=== PATIENT | male | born 1990 | race Caucasian/White ===

== ENCOUNTER 2020-03-23 08:11 | Day surgery (SDC) | payer OTHER, SELFPAY ==
[2020-03-02 09:56] VITALS: BMI 26.9
--- NOTE | 2020-03-23 06:06 | HP_ITS ---
Intake Vital Signs 03/02/20 Height 5 ft 11 in 03/02/20 Weight: 193 lb 03/02/20 BMI 26.9 03/02/20 BP 128/79 H 03/02/20 Blood Pressure Location Rt brachial 03/02/20 Position Sitting 03/02/20 Respiration 18 Intake Visit Reasons: R Inguinal Hernia Chief Complaint: [facility] Learning Administrator Required: No Is patient in pain?: No Allergies No Known Allergies Allergy (Verified 03/02/20 09:57) PFSH Surgical History S/P wisdom tooth extraction (Acute) Social History (Updated 03/03/20 @ 09:[address] Mervin Rosenthal MD) Smoking Status: Never smoker alcohol intake: current alcohol intake frequency: a few times a month HPI HPI HPI: MIRIAM KUMARI, is a 29 M who presents to the office today for HPI HPI Surgical H&P: Yes HPI: MIRIAM KUMARI, is a 29 M who presents to the office today for right groin bulging. Patient reports that he has had right groin bulging for at least 1 to 2 months but does not know how long it has been there. He said he recently lost weight and noticed that the bulge in the groin did not go away. He does have pain with bending over. Patient does not have any nausea or vomiting or radiation of pain and he does not have any pain on the opposite side. ROS General General: No weight change or fatigue Cardio Cardiovascular: No murmur, pacemaker, heart disease, atrial fibrillation, high blood pressure, heart attack, heart stent, palpitations, shortness of breat with exertion or chest pain Psych Psychiatric: No depression or anxiety Resp Respiratory: No shortness of breath, No sleep apnea, No cough, No COPD, No asthma, No emphysema, No wheezing Gastro Gastrointestinal: No abdominal pain, No nausea or vomiting, No diarrhea, No constipation, No blood in stool, No acid reflux, No hemorrhoids, No ulcers, No gallbladder problem, No black,tarry stools Sacha Hematologic: No blood thinners Exam Const General: cooperative Orientation: alert, oriented x3 Resp Effort & Inspection: normal respiratory effort Auscultation: clear to auscultation bilaterally Cardio Rate: regular rate Rhythm: regular rhythm Heart Sounds: no murmurs GI Inspection: non-distended Palpation: soft, hernia indirect inguinal on the right, nontender Assessment & Plan Problems 1. Right inguinal hernia K40.90 Plan The patient has a reducible right inguinal hernia. I discussed open versus laparoscopic dual hernia repair with him. I discussed mesh placement. The patient elected for a robotic assisted laparoscopic right inguinal hernia repair with mesh, possible bilateral. I discussed if the patient had an identifiable hernia on the left side during surgery if he would want repaired and he said he would. I discussed surgery in detail with the patient. I discussed the risks including not limited to bleeding, infection, injury to other organ such as the bowel, bladder, ureters, spermatic cord and the possibility of chronic groin pain and recurrence of the hernia. The patient understands all the risks and is when to proceed. We discussed the current risks associated with COVID-19. While it is understood that there is a community spread of COVID-19, the risk of verena COVID-19 while at [facility] ([facility]) is very low; however, the risk cannot be completely mitigated because of the community spread of the disease. We discussed in detail the risk of exposure to and/or potential harm posed by the COVID-19 virus with having a surgery/procedure at this time versus the risk of delaying the surgery/procedure. It is not possible to know either the risk of delaying the surgery or procedure or chance of getting an infection with perfect accuracy, but a joint decision was made to proceed at this time with the scheduled surgery/procedure as indicated on the consent form. Patient was notified that we will need to comply with any screening or testing [facility] wishes to perform or that surgery may be delayed for any positive results. Mervin Rosenthal MD Pager: [facility] [address] [place] [address], [address] [place] [address] Office: Coding Level of Care Code Off vis,new,level 3 Diagnoses Right inguinal hernia K40.90 I have re-examined the patient. There are no clinical changes since date of exam.
[2020-03-23] MEDS: Lactated Ringers 1,000 ML 100 ML IV ×2 (09:55→13:23)
[2020-03-23 10:17] VITALS: BP 131/69; PULSE 67; RESP 16; TEMP 36.4; O2SAT 97; BMI 26.9
[2020-03-23] MEDS: Cefazolin 2 GM in 0.9% Normal Saline 100 ML IV (11:51)
[2020-03-23 13:08] VITALS: BP 129/93; BP 131/69; PULSE 59; RESP 16; TEMP 36.3; O2SAT 100
--- NOTE | 2020-03-23 13:14 | OP.PCM_ITS ---
Problem List (1) Right inguinal hernia Status: Acute Report of Operation Date of Procedure: 03/23/20 Pre-Operative Diagnosis: Right inguinal hernia Post-Operative Diagnosis: Same Surgery/Procedure Performed:: Laparoscopic robotic assisted right inguinal hernia repair with mesh Description of Procedure: Patient was brought back to the operating room and general anesthesia was induced. The abdomen was prepped and draped in usual sterile fashion. A midline incision was created superior to the umbilicus and deepened to the fascia which was elevated and incised. A finger sweep was performed and a balloon trocar was placed into the abdomen and the abdomen was insufflated to 15 mmHg. The abdomen was inspected the patient had a radial hernia only and the left side appeared normal. Next an incision was made in the right lower quadrant as well as the left lower quadrant and two 8 mm ports were placed under direct visualization. The patient was then placed in Trendelenburg position and the robot was docked. Cautery scissors were used to make an incision in the peritoneum on the right side. The dissection was carried inferiorly until the hernia sac was identified and reduced into the abdomen and the adhesions to it were lysed. Next a progrip mesh was placed into the right groin and unfolded over the hernia defect. The hernia sac was then reapproximated using a running 3 OV lock suture including the hernia sac in the suture line to prevent it from creating a peritoneal hernia. The peritoneum provided complete coverage of the hernia mesh. Next the robot was undocked and the air was allowed to desufflate from the abdomen. The fascia of the midline incision was closed with an 0 Vicryl [id number] suture. All incisions were injected with local anesthetic and closed with interrupted 4-0 Monocryl suture as well as Steri- Strips and bandages. Scrotum was checked at the end of the case and contain both testicles. Patient was taken to PACU in stable condition. - Admit VTE Documentation VTE Mechan Device Prophylaxis: SCD's
[2020-03-23 13:15] VITALS: BP 118/79; BP 131/69; PULSE 53; RESP 16; O2SAT 100
--- NOTE | 2020-03-23 13:18 | DCINST_ITS ---
Discharge Diet: Light diet - advance as tolerated Discharge Activity: Return to Normal Activity, May Not Drive - for 2-3 days or while taking narcotic pain meds., May Shower - with the bandage in place 1-2 days after surgery. Lifting Restrictions: 20 pounds for 4 weeks. Additional Activity Instructions:: Climbing stairs is fine, walking is encouraged. Sitting in bed may be uncomfortable. Sitting up using your lateral muscles (sitting up sideways) is usually more comfortable. Do not drive, work heavy equipment of sign legal documents for 24 hours. If your hernia repair was an ingunial repair, you may have scrotal swelling, an ice pack and/or athletic support can provide more comfort. Pain medications may cause nausea, you should typically eat light foods as you take your pain medications. Pain medications may also cause constipation. If you have difficulty with this, discuss with your doctor. Call your doctor if your incision/area has: Continuous Slow Oozing, Sudden Increased Bleeding, Increased Pain/ Swelling, Increased Redness, Foul Smelling Discharge Call your doctor if you observe: Fever of 101 or Higher Suture Line Care: Avoid Pulling/Pushing, Avoid Pinching/Bending Change Dressing in (Days):: 3 - Leave steri-strips for 1 week. May protect with a guaze bandaid. Cleanse incision/area with: Keep Dressing Clean & Dry Allergies/Adverse Reactions: Allergies No Known Allergies Allergy (Verified 03/23/20 09:59) Medications to take at Discharge Oxycodone HCl/Acetaminophen [Percocet 5-325 mg Tablet] 1 - 2 tab PO Q6H PRN PRN 5 Days #10 tablet 03/23/20 The following prescriptions were given: Oxycodone HCl/Acetaminophen [Percocet 5-325 mg Tablet] 1 - 2 tab PO Q6H PRN PRN 5 Days #10 tablet PRN Reason: Pain Score 4-10/10 Transmission Status: Sent to [facility] Primary Care Physician: Joshua Benitez MD [Primary Care Provider] - Test Results: Test results from this visit will be discussed in further detail at your follow- up appointment, if applicable. Please Follow Up With: Mervin Rosenthal MD When: Please call to schedule 2 week follow up appointment. [phone]
[2020-03-23 13:30] VITALS: BP 120/91; BP 131/69; PULSE 58; RESP 16; O2SAT 100
[2020-03-23 13:40] VITALS: BP 121/81; BP 131/69; PULSE 70; RESP 64; TEMP 36.3; O2SAT 16
[2020-03-23] MEDS: Acetaminophen 325 MG Tablet PO (14:21)
[2020-03-23] MEDS: oxyCODONE 5 MG Tablet PO (14:21)
[2020-03-23 14:48] VITALS: BP 127/71; BP 131/69; PULSE 66; RESP 16; TEMP 36.4; O2SAT 100
== END 2020-03-23 14:52 | disposition home or self-care (01) ==
LOC: SDC 08:43 → AC 09:29
PROVIDERS: PCP Family Medicine; Referring Provider Surgery; Visit Provider Surgery
PROC: (CPT 49650; principal; 2020-03-23 10:40)
DX: K40.90 Unilateral inguinal hernia, without obstruction or gangrene, not specified as recurrent (principal); Z20.818 Contact with and (suspected) exposure to other bacterial communicable diseases
CPT/HCPCS: 00840; 49650; S2900; 87426; C9803; J7120; J2405

== ENCOUNTER → 2020-10-27 09:36 | Outpatient (CLI) | payer OTHER, SELFPAY ==
[2020-10-27 12:04] LABS: ALB/GLOB Ratio 1.6 RATIO (0.9-2.4); AST(SGOT) 15 U/L (15-37); Alanine Aminotransfer ALT/SGPT 20 U/L (16-61); Albumin, Serum 4.4 g/dL (3.2-5.0); Alkaline Phosphatase 59 U/L (45-117); Anion Gap 5 (5-15); BUN 19 mg/dL (7-18); BUN/Creat Ratio 19.7 RATIO (10-20); Calcium,Total 8.9 mg/dL (8.5-10.1); Chloride 103 mmol/L (98-107); Cholesterol 147 mg/dL (200); Creatinine, Serum 0.96 mg/dL (0.70-1.30); EST Glomerular Filtration Rate 97 mL/min (>60); Est Glom Filt Rate - Afr Amer 118 mL/min (>60); Globulin 2.7 g/dL (2.2-4.2); Glucose 91 mg/dL (74-106); High Density Lipoprotein 70 mg/dL; Protein, Total 7.1 g/dL (6.4-8.2); Sodium Level 138 mmol/L (136-145); Triglycerides 37 mg/dL; Very Low Density Lipoprotein 7 mg/dL (5-40)
== END ==
PROVIDERS: PCP Family Medicine; Referring Provider Family Medicine; Visit Provider Family Medicine
DX: E66.3 Overweight (principal)
CPT/HCPCS: 36415; 80053; 80061